=== PATIENT | female | born 1985 | race Caucasian/White ===

== ENCOUNTER 2019-06-07 12:55 | Outpatient (RCR) | payer OTHER, SELFPAY ==
[2019-06-07 14:42] LABS: Basophils Absolute Auto 0.1 K/mm3 (0.0-0.1); Basophils Percent Auto 0.4 % (0.2-1.2); Eosinophils Absolute Auto 0.1 K/mm3 (0-0.3); Eosinophils Percent Auto 0.5 % (0-4.4); Hematocrit 35.7 % (37.0-47.0); Hemoglobin 11.6 g/dL (12.0-15.0); Immature Granulocyte Absolute 0.22 K/mm3 (0.00-0.031); Immature Granulocyte Percent A 1.7 % (0-0.5); Lymphocytes Absolute Auto 2.04 K/mm3 (0.9-3.2); Mean Corpuscular HGB Conc 32.5 g/dl (32-36); Mean Corpuscular Hemoglobin 29.5 pg (26-34); Mean Corpuscular Volume 90.8 fl (80-100); Monocytes Absolute Auto 0.8 K/mm3 (0.1-0.6); Neutrophils Absolute Auto 9.6 K/mm3 (1.3-6.7); Neutrophils Percent Auto 75.4 % (45.5-73.1); Platelet Count Result 283 k/mm3 (150-375); Red Blood Count 3.93 M/mm3 (4.2-5.4); Red Cell Distribution Width 12.7 % (11.5-14.5); White Blood Count 12.7 K/mm3 (4.5-10.0)
[2019-06-07 14:49] LABS: Glucose 1 Hour PP 50gm Dose 126 mg/dL
== END 2019-09-05 23:59 | disposition home or self-care (01) ==
LOC: ANHLAB 12:55
PROVIDERS: PCP Family Medicine; Visit Provider Obstetrics & Gynecology
DX: Z34.90 Encounter for supervision of normal pregnancy, unspecified, unspecified trimester (principal); Z3A.00 Weeks of gestation of pregnancy not specified
CPT/HCPCS: 36415; 82947; 85025

== ENCOUNTER 2019-06-11 12:02 | Outpatient (RCR) | payer OTHER, SELFPAY ==
[2019-06-11] MEDS: RHO(D) IMMUNE GLOBULIN 300 MCG SYRINGE IM (19:02)
== END 2019-09-09 23:59 | disposition home or self-care (01) ==
LOC: ANHLAB 12:02
PROVIDERS: PCP Family Medicine; Visit Provider Obstetrics & Gynecology
DX: Z29.13 Encounter for prophylactic Rho(D) immune globulin (principal); O36.0990 Maternal care for other rhesus isoimmunization, unspecified trimester, not applicable or unspecified; Z3A.00 Weeks of gestation of pregnancy not specified
CPT/HCPCS: 36415; 90384; 96372; J2790

== ENCOUNTER 2019-08-11 03:02 | Inpatient (IN) | payer BC, SELFPAY ==
--- NOTE | 2019-08-11 03:02 | LDADM ---
This patient, Ivy Gueris, was admitted to Labor/Delivery/Recovery 105 on 08/11/19 at 03:02. Plans for labor, pain management and were discussed with patient. Patient/family oriented to hospital policies and general routines including ID bracelet, bed and alarms, visiting hours, pain management, procedures, bathroom and other care routines, personal items, smoking policy, room service/diet and guest tray routines, infant security routines, and visiting hours. Patient/Family are encouraged to report perceived risks to care and to ask questions if they do not understand what they are told or what they should do. See OBIX for further documentation.
[2019-08-11 04:00] VITALS: BP 104/58; PULSE 82
[2019-08-11 04:03] VITALS: BMI 33.0
[2019-08-11] MEDS: LACTATED RINGERS 1,000 ML 125 ML IV CONT (04:18)
[2019-08-11] MEDS: BETAMETHASONE SOD PHOS/ACETATE 30 MG/5 ML VIAL 12 MG IM (04:23)
[2019-08-11 04:25] LABS: Basophils Absolute Auto 0.1 K/mm3 (0.0-0.1); Basophils Percent Auto 0.5 % (0.2-1.2); Eosinophils Absolute Auto 0.1 K/mm3 (0-0.3); Eosinophils Percent Auto 0.7 % (0-4.4); Hematocrit 36.3 % (37.0-47.0); Hemoglobin 11.8 g/dL (12.0-15.0); Immature Granulocyte Absolute 0.16 K/mm3 (0.00-0.031); Immature Granulocyte Percent A 1.4 % (0-0.5); Lymphocytes Absolute Auto 2.39 K/mm3 (0.9-3.2); Lymphocytes Percent Auto 20.4 % (18.3-44.2); Mean Corpuscular HGB Conc 32.5 g/dl (32-36); Mean Corpuscular Hemoglobin 28.9 pg (26-34); Mean Platelet Volume 11.6 fl (7.4-10.4); Monocytes Absolute Auto 1.1 K/mm3 (0.1-0.6); Monocytes Percent Auto 9.1 % (2.6-8.5); Neutrophils Percent Auto 67.9 % (45.5-73.1); Platelet Count Result 264 k/mm3 (150-375); Red Blood Count 4.08 M/mm3 (4.2-5.4); Red Cell Distribution Width 12.7 % (11.5-14.5); White Blood Count 11.7 K/mm3 (4.5-10.0)
[2019-08-11] MEDS: AMPICILLIN 2 GM/NS 100 ML 2 GM/100 ML BAG IVPB (04:35)
[2019-08-11 05:17] LABS: HIV 1/2 Ab P24 Ag Result Negative (Negative)
--- NOTE | 2019-08-11 05:27 | PM.IMHP ---
H&P: HPI History of Present Illness Chief complaint: SROM Narrative: Ivy Forte is a 34 year old female with complaints of waking up with leaking of fluid at 0200. On admission to and D she confirmed gross rupture of membranes. Denies fevers chills or abdominal pain. PNC uncomplicated. Labs: A neg, HIV neg, glu 126. Rhogam 06/01. Review of Systems Review of Systems: All systems reviewed & are unremarkable except as noted in HPI and below Constitutional: Constitutional: Reports no additional constitutional complaints and Denies headache(s) Eyes: Eyes: Denies spots in vision ENT: Reports system reviewed and no additional complaints, except as documented and Denies headache(s) Cardiovascular: Cardiovascular: Denies chest pain and Denies dyspnea Respiratory: Respiratory: Denies dyspnea Gastrointestinal: Gastrointestinal: Reports no additional gastrointestinal complaints Genitourinary: Genitourinary: Reports amenorrhea Musculoskeletal: Musculoskeletal: Reports no additional musculoskeletal complaints Integumentary/Breasts: Skin/Breast: Denies breast mass and Denies rash Neurologic: Denies headache(s) Psychiatric: Psychiatric: Reports no additional psychiatric complaints [facility] Past Medical History Medical History (Updated 08/11/19 @ 05:34 by Johnnie Pérez MD) Anemia Encounter for supervision of normal first , third trimester premature rupture of membranes (PPROM) with unknown onset of labor Surgical History Surgical History Hx of tonsillectomy [place] teeth removed Family History Family History Grandparent Lung cancer Acute myocardial infarction High cholesterol Grandparent Family history of hypercholesterolemia Family history of hepatitis Family history of lung cancer Mother Family history of hypercholesterolemia Social History Social History Smoking status: Never smoker Alcohol intake: current Meds Home Medications and Allergies Home Medications Medication Instructions Recorded Confirmed Type Lactobacillus acidophilus 1.5 mg 100 mmu cells PO DAILY 04/30/19 History (250 million cell) capsule vits 75-iron 28 mg-folic pkg PO 04/30/19 History acid 800 mcg-omega-3 oral combo pack cholecalciferol (vitamin D3) 50 2,000 unit PO DAILY 05/28/19 History mcg (2,000 unit) tablet Allergies Allergy/AdvReac Type Severity Reaction Status Date / Time No Known Allergies Allergy Verified 08/06/19 16:17 Vital Signs Vital Signs - 24 hr 08/11/19 04:00 Pulse Rate 82 Blood Pressure 104/58 L FHT 140, Cat 1, occasional variable, mild occasional uterine irritability Exam Const: General: no acute distress Eyes: General: appearance normal, both eyes and all related structures Resp: Effort & Inspection: normal respiratory effort Cardio: Rate: regular rate GI: Other: Gravid no fundal tenderness no right upper quadrant pain : External Female Exam: normal external appearance Speculum Exam - Vagina: other (large amount clear fluid in vagina) Speculum Exam - Cervix: Other cervical findings present (cervix visually closed) Amniotic Fluid: clear Skin: General skin exam: no rashes or lesions noted Neuro: Cognition (Neuro): normal cognition Extrem: General: normal to inspection Psych: Mental Status: mental status grossly normal H&P: Results Labs Labs: Short CBC 08/11/19 Range/Units 04:13 WBC 11.7 H (4.5-10.0) K/mm3 Hgb 11.8 L (12.0-15.0) g/dL Hct 36.3 L (37.0-47.0) % Plt Count 264 (150-375) k/mm3 Assessment and Plan Assessment and plan (1) premature rupture of membranes (PPROM) with unknown onset of labor: Code(s): O42.919 - premature rupture of membranes, unspecified as to length of time be
--- NOTE | 2019-08-11 05:30 | PC.NURSE ---
orders received from dr Pérez to administer 2g bolus of magnesium sulfate and 1g/hr of mag sulfate continuously
[2019-08-11 05:37] VITALS: BP 120/78; PULSE 74
--- NOTE | 2019-08-11 06:05 | PC.NURSE ---
dr dawn called and mag orders of 2gram bolus and 1 gram/hr continuous
[2019-08-11] MEDS: MAGNESIUM SULF 2 GM/WATER 50ML 2 GM/50 ML BAG IVPB (06:21)
--- NOTE | 2019-08-11 06:25 | PC.NURSE ---
report given to kolton peña at [facility]
[2019-08-13 10:49] LABS: Rapid Plasma Reagin Non-Reactive (NonReactive)
--- NOTE | 2019-08-31 10:52 | P.TS_ITS ---
Transfer Discharge Sum: Prov Provider Date of admission: 08/11/19 03:02 Primary care physician: Rafi Matt, M.Annel. Admitting clinician: Johnnie Pérez MD DS: Diagnosis Admitting Diagnosis Admitting Diagnosis: Pre-term premature rupture of membranes, unspecified as to length of time between rupture and onset of labor Transfer Discharge Sum: Med Medications Active and Home Medications: Home Medications Lactobacillus acidophilus 1.5 mg (250 million cell) capsule 100 mmu cells PO DAILY 04/30/19 [History] vits 75-iron 28 mg-folic acid 800 mcg-omega-3 oral combo pack pkg PO 04/30/19 [History] cholecalciferol (vitamin D3) 50 mcg (2,000 unit) tablet 2,000 unit PO DAILY 05/28/19 [History] cephalexin 250 mg capsule 250 mg PO Q8H #21 cap 08/30/19 [Rx Confirmed 08/30/19] Transfer Discharge Sum: Hosp Hospital Course Hospital course: Ivy Forte is a 34 year old female presented to Labor at 34 5 weeks with complaints of leaking of fluid. She was confiirmed to have rupture of membranes. By visual inspection cervix not dilated. She was informed of risk early delivery and recommendation for induction of labor with PROM after 34 weeks or expectant management. Due to risk of delivery she wanted to be delivered at [facility] as to not have to be seperated from her baby. [facility] at [facility] accepted her as a patient. She was given Celestone and IV antibiotics and Magnesium for transport. tracing was reassuring. Time Spent with Patient Time attestation: Total time spent providing and/or coordinating transfer services: Exam Const: General: cooperative HENMT: Head: normal to inspection Resp: Effort & Inspection: normal respiratory effort Cardio: Rhythm: regular rhythm GI: GI Palp: Yes Other GI palpation findings present (gravid uterus, nontender) Extrem: General: normal to inspection Psych: Appearance: grossly normal
== END 2019-08-11 06:40 | disposition short-term general hospital (02) | DRG 833 ==
PROVIDERS: Admitting Provider Obstetrics & Gynecology; PCP Family Medicine; Visit Provider Obstetrics & Gynecology
DX: O42.92 Full-term premature rupture of membranes, unspecified as to length of time between rupture and onset of labor (principal); Z3A.00 Weeks of gestation of pregnancy not specified
CPT/HCPCS: 36415; 85025; 86592; 86703; 86850; 86880; 86900; 86901; 87081; G0432; J0290; J0702; J3475; J7120